=== PATIENT | female | born 1945 | race Caucasian/White ===

== ENCOUNTER → 2017-12-31 07:58 | Outpatient (CLI) | payer MEDICARE, SELFPAY ==
--- NOTE | 2017-12-31 | DI.MG.S_ITS ---
BILATERAL DIGITAL SCREENING MAMMOGRAM 3D/2D WITH CAD: 12/31/2017 CLINICAL: Routine screening. Family history of breast cancer. Comparison is made to exams dated: 11/23/2015 mammogram, 11/05/2015 mammogram, and 02/08/2009 mammogram - [facility]. There are scattered fibroglandular elements in both breasts. Current study was also evaluated with a Computer Aided Detection (CAD) system. No significant masses, calcifications, or other findings are seen in either breast. There has been no significant interval change. IMPRESSION: NEGATIVE There is no mammographic evidence of malignancy. A 1 year screening mammogram is recommended. This exam was interpreted at Station ID: [id number]. NOTE: For mammograms, a report in lay terms will be sent to the patient. Approximately 15% of breast malignancies will not be visualized mammographically. In the management of a palpable breast mass, a negative mammogram must not discourage biopsy of a clinically suspicious lesion. Electronically Signed By: Terrie alegria/caterina:12/31/2017 09:34:11 letter sent: Normal Exam ACR BI-RADS Category 1: Negative 3341F
== END ==
PROVIDERS: PCP Internal Medicine; Visit Provider Internal Medicine
DX: Z12.31 Encounter for screening mammogram for malignant neoplasm of breast (principal); Z80.3 Family history of malignant neoplasm of breast
CPT/HCPCS: 77063; 77067

== ENCOUNTER 2018-10-18 17:07 | Emergency (ER) | payer MEDICARE, SELFPAY ==
[2018-10-18 17:47] VITALS: BP 162/89; PULSE 76; RESP 16; TEMP 36.7; O2SAT 98; BMI 30.4
[2018-10-18 18:24] LABS: Add Manual Diff / Slide Review NO; Basophils Absolute Auto 100 /uL (0-100); Basophils Percent Auto 1.1 % (0-2); Eosinophils Absolute Auto 300 /uL (0-450); Eosinophils Percent Auto 3.6 % (2-4); Hematocrit 40.4 % (36-46); Lymphocytes Absolute Auto 1800 /uL (1100-4500); Lymphocytes Percent Auto 25.6 % (25-40); Mean Corpuscular HGB Conc 34.6 % (30-36); Mean Corpuscular Hemoglobin 33.3 PG (26-34); Mean Corpuscular Volume 96.1 fL (80-100); Monocytes Absolute Auto 600 /uL (0-900); Monocytes Percent Auto 9.3 % (3-14); Neutrophils Absolute Auto 4200 /uL (1500-7000); Neutrophils Percent Auto 60.4 % (50-75); Platelet Count 174 X10^3/uL (150-400); Red Cell Distribution Width 12.8 % (11.6-14.8)
[2018-10-18 18:34] LABS: Alanine Aminotransferase 23 IU/L (9-52); Albumin 4.1 g/dL (3.5-5.0); Albumin Globulin Ratio 1.3 (1.0-2.8); Alkaline Phosphatase 54 U/L (38-126); Aspartate Aminotransferase 29 IU/L (14-36); BUN Creatinine Ratio 23.3 (6-22); Blood Urea Nitrogen 14 mg/dL (7-17); Calcium 10.1 mg/dL (8.4-10.2); Carbon Dioxide 29 mmol/L (22-32); Chloride 96 mmol/L (98-107); Estimated Glomerular Filt Rate > 60.0 mL/min (>60); Globulin 3.1 g/dL (1.7-4.1); Glucose 111 mg/dL (80-110); HEMOLYSIS < 15 (0-50); Potassium 3.4 mmol/L (3.4-5.1); Sodium 133 mmol/L (137-145); Total Protein 7.2 g/dL (6.3-8.2)
[2018-10-18 20:44] VITALS: BP 154/96; PULSE 73; RESP 18; O2SAT 99
--- NOTE | 2018-10-18 21:15 | ED.NEUROSD ---
HPI - Neuro Symptoms/Deficit General Chief Complaint: Neuro Symptoms/Deficit Stated Complaint: lightheaded,never felt like this,SOB Time Seen by Provider: 10/18/18 21:05 Source: patient Mode of arrival: ambulatory Limitations: no limitations History of Present Illness HPI Narrative: This is a 72-year-old female comes emergency department with complaint of not feeling right. Patient states that today she felt like her head did not work. She states she felt clear, she was able to speak, read function she did have any problems but she just felt like there was a ?powder puff sitting on top of her head?. Patient states she thought she might be hungry she tried to finish her food which she did finish ordered she finished her normal daily glass of wine at 4:00 p.m.. Patient states she did have a similar episode about 2 and half years ago that was not exactly the same but somewhat similar. Was about 2 weeks after her had and she was going through the process of setting up his cream a garcía and working through family issues and had a similar situation. Today she felt tingly all over both arms, both legs.. She felt like she might fall down but was able to walk around without issue. She did have any weakness in her extremities, she did have any numbness other than the tingly sensation. She had a little bit of a shortness of breath and chest pain which she has had continuously. Patient denies any nausea, no vomiting, no diarrhea or constipation. She has had a history of PE after having a broken foot did review the cast for 3 words. She takes blood pressure as well as cholesterol medications, potassium replacement and medication for osteopenia as well as thyroid medicine. She denies any tobacco, she does drink alcohol. She states she has been stressed because she is about to move to [place] and is doing this process is a single individual. On Anticoagulants: No Related Data Home Medications Medication Instructions Recorded Confirmed [CALCIUM] PO QDAY #0 05/17/17 ascorbic acid (vitamin C) PO QDAY #0 05/17/17 aspirin 81 mg PO QPM #0 05/17/17 cholecalciferol (vitamin D3) PO QDAY #0 05/17/17 [Vitamin D3] lisinopril-hydrochlorothiazide 1 tab PO QDAY #0 05/17/17 magnesium amino acid chelate PO QDAY #0 05/17/17 multivitamin [Multiple Vitamins] 1 tab PO QDAY #0 05/17/17 simvastatin 40 mg PO HS #0 05/17/17 vitamin B complex [B 1 tab PO QDAY #0 05/17/17 Complex-Vitamin B12] Previous Rx's Medication Instructions Recorded apixaban [Eliquis] 5 mg PO BID #30 05/17/17 Allergies Allergy/AdvReac Type Severity Reaction Status Date / Time No Known Allergies Allergy Uncoded 10/18/18 17:52 Review of Systems Review of Systems ROS Unobtainable: All systems reviewed & are unremarkable except as noted in HPI and below PFSH Social History Smoking Status: Never smoker Social History Smoking Status: Never smoker Exam Narrative Exam Narrative: GEN: well nourished, well appearing female, alert and oriented x 3, patient appears to be in no acute distress. HEENT: Atraumatic, pupils are equal round reactive to light, extraocular movements are intact, nares are clear, Throat is clear without any exudates, erythema, tonsillar enlargement or uvular deviation, no facial droop. HEART: Regular rate and rhythm without murmur, clicks, rubs. No carotid bruits, pulses are equal in upper and lower extremities LUNGS:Lungs clear to auscultation, no wheezes, rales, crackles, chest moves symmetrically ABD:bowel sounds normal, soft, non-tender, no guarding, rebound, rigidity, no masses noted, no hepatosplenomegaly MSCL: Non-tender, no muscle atrophy, muscles strength 5/5 upper and lower extremities, full range of motion NEURO:CN 2-12 intact, sensation normal, reflexes 2/4 upper and lower extremities. finger nose finger test normal, heel garcía test ashwini SKIN: dry, warm, no rash, no petechiae.l Initial Vital Signs Initial Vital Signs: Vital Signs Temperature 98.0 F 10/18/18 17:47 Pulse Rate 76 10/18/18 17:47 Respiratory Rate 16 10/18/18 17:47 Blood Pressure 162/89 H 10/18/18 17:47 Pulse Oximetry 98 10/18/18 17:47 Scores NIH Stroke Scale Level of Conciousness: Alert, keenly responsive Ask month/age: Answers both questions correctly. Open/close eyes, close hand: Performs both tasks correctly Best gaze horizontal: Normal Visual wallace: No visual loss Facial palsy: Normal symetrical movement Left arm drift: No drift for full 10 sec Right arm drift: No drift for full 10 sec Left leg drift: No drift for full 10 sec Right leg drift: No drift for full 10 sec Limb ataxia: Absent Sensory on face/arms/legs: Normal, no sensory loss Best language: No aphasia, normal Dysarthria: Normal Extinction or inattention: No abnormality Total NIH Stroke scale score: 0 Course Orders Ordered: ED Orders 10/18/18 21:36 CT head/brain wo con Stat Vital Signs Vital signs: Vital Signs - 8 hr 10/18/18 22:34 Pulse Rate 73 Respiratory Rate 18 Blood Pressure [Left Arm] 134/82 Pulse Oximetry 97 MDM - Neuro Symptoms/Deficit Lab Data Attestation: I reviewed the patient's lab results. Result diagrams: 10/18/18 18:14 10/18/18 18:14 Labs: Lab Results 10/18/18 10/18/18 10/18/18 Range/Units 17:55 18:14 18:14 WBC 7.0 (4.5-11.0) X10^3/uL RBC 4.20 (4.0-5.2) X10^6/uL Hgb 14.0 (12.0-16.0) g/dL Hct 40.4 (36-46) % MCV 96.1 (80-100) fL MCH 33.3 (26-34) PG MCHC 34.6 (30-36) % RDW 12.8 (11.6-14.8) % Plt Count 174 (150-400) X10^3/uL Neut % (Auto) 60.4 (50-75) % Lymph % (Auto) 25.6 (25-40) % [place] % (Auto) 9.3 (3-14) % Eos % (Auto) 3.6 (2-4) % Baso % (Auto) 1.1 (0-2) % Neut # (Auto) 4200 (6956-0288) /uL Lymph # (Auto) 1800 (0384-8196) /uL [place] # (Auto) 600 (0-900) /uL Eos # (Auto) 300 (0-450) /uL Baso # (Auto) 100 (0-100) /uL Sodium 133 L (137-145) mmol/L Potassium 3.4 (3.4-5.1) mmol/L Chloride 96 L (98-107) mmol/L Carbon Dioxide 29 (22-32) mmol/L BUN 14 (7-17) mg/dL Creatinine 0.60 (0.52-1.04) mg/dL Estimated GFR > 60.0 (>60) mL/min BUN/Creatinine Ratio 23.3 H (6-22) Glucose 111 H (80-110) mg/dL Calcium 10.1 (8.4-10.2) mg/dL Total Bilirubin 1.0 (0.2-1.3) mg/dL AST 29 (14-36) IU/L ALT 23 (9-52) IU/L Alkaline Phosphatase 54 (38-126) U/L Total Creatine Kinase 54 (30-135) U/L CK-MB (CK-2) TNP CK-MB (CK-2) Rel Index TNP Troponin I < 0.012 (0.01-0.034) ng/mL Total Protein 7.2 (6.3-8.2) g/dL Albumin 4.1 (3.5-5.0) g/dL Globulin 3.1 (1.7-4.1) g/dL Albumin/Globulin Ratio 1.3 (1.0-2.8) Urine Dip Bedside Urine Glucose Negative Bedside Urine Bilirubin - Negative Bedside Urine Ketone - Negative Urine Specific [place] 1.010 Bedside Urine Occult Blood - Negative Bedside Urine pH 7.0 Bedside Urine Protein - Negative Bedside Urine Urobilinogen - Negative Bedside Urine Nitrite - Negative Bedside Urine Leukocytes - Negative Esterase Imaging Data CT scan - head: Radiologist's impression: Extensive atrophy like change in moderate nonspecific white matter hypodensity. Probable arachnoid cyst in the right middle cranial fossa. Probable non calcified meningioma left anterior falx 3 x 1.7 x 1.6 x 0.6. 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 Old left basal ganglia lacunar infarct. No mass, midline shift, hydrocephalus or acute hemorrhage. No acute fracture. ECG Data Attestation: I personally reviewed and interpreted this ECG as follows: Prior ECG tracings: available for review Interpretation: Sinus rhythm with PVC, rate of 69 P are 192 QRS of 106 and QTC of 438. Patient has similar EKG from 05/17/2017. Incomplete bundle branch block. MDM Narrative Medical decision making narrative: Patient is feeling better at this time. We reviewed her CT findings with did show possible old infarcts but no acute. We did discuss that a CT of the head is not going to find any sudden acute infarcts but her discrete sputum of history as well as NIH scale does not preclude me to think she has had a TIA or CVA today. We did discuss possible causes and that I do think she needs follow up with her primary care and to evaluate risk factors because she appears to have old strokes on her head CT. Discharge Plan Departure Patient Disposition: Home Clinical Impression: Light-headed feeling, Pulmonary embolism Discharge Date/Time: 10/18/18 23:11 Activity Restrictions/Additional Instructions: Follow-up with your primary care physician for recheck. Call for an appointment if you did not already have one. Continue home medications as prescribed. Here CT today shows a likely arachnoid cyst some meningioma these are unlikely to be the causes of your symptoms today. Return to the emergency department for fevers greater than 100.4 F, new weakness, numbness, difficulty with speech sudden severe headaches, passing out, persistent vomiting, black or bloody stools or other new or concerning symptoms. Prescriptions: No Action lisinopril-hydrochlorothiazide 20 MG/25 MG tablet 1 tab PO QDAY Qty: 0 RF: 0 aspirin 81 MG tablet,delayed release (DR/EC) 81 mg PO QPM Qty: 0 RF: 0 simvastatin 40 MG tablet 40 mg PO HS Qty: 0 RF: 0 vitamin B complex [B Complex-Vitamin B12] 1 EACH tablet 1 tab PO QDAY Qty: 0 RF: 0 ascorbic acid (vitamin C) 500 mg tablet PO QDAY Qty: 0 RF: 0 magnesium amino acid chelate 100 mg tablet PO QDAY Qty: 0 RF: 0 [CALCIUM] PO QDAY Qty: 0 RF: 0 multivitamin [Multiple Vitamins] 1 EACH tablet 1 tab PO QDAY Qty: 0 RF: 0 cholecalciferol (vitamin D3) [Vitamin D3] 2,000 unit capsule PO QDAY Qty: 0 RF: 0 apixaban [Eliquis] 5 MG tablet 5 mg PO BID Qty: 30 RF: 0 Referrals: Farhana Corona MD [Primary Care Provider] -
--- NOTE | 2018-10-18 21:36 | DI.CT.S_ITS ---
PROCEDURE: CT HEAD/BRAIN WO CON INDICATIONS: felt funny, like a powder puff on head. TECHNIQUE: Noncontrast 4.5 mm thick angled axial sections acquired from the foramen magnum to the vertex, with coronal and sagittal reformats. For radiation dose reduction, the following was used: automated exposure control, adjustment of mA and/or kV according to patient size. COMPARISON: None. FINDINGS: Image quality: Excellent. CSF spaces: Basal cisterns are patent. No extra-axial fluid collections. The ventricles are symmetric in size and shape. Brain: No intracranial bleeds or masses. There is cerebral volume loss for age, with resultant ventricular and sulcal prominence. There are periventricular and deep white matter chronic small vessel ischemic changes. There is intracranial internal carotid artery atherosclerosis. Skull and face: Calvarium and visualized facial bones appear intact, without suspicious lesions. Sinuses: Visualized sinuses and mastoids are clear. IMPRESSION: Normal head CT for age. Note: No significant discrepancy from the preliminary report. Dictated by: Brijesh Sosa M.D. on 10/19/2018 at 8:18 Approved by: Brijesh Sosa M.D. on 10/19/2018 at 8:19
[2018-10-18 21:50] LABS: Creatine Kinase 54 U/L (30-135)
[2018-10-18 21:52] VITALS: BP 166/82; PULSE 72; RESP 18; O2SAT 97
--- NOTE | 2018-10-18 21:53 | PC.NURSE ---
Noted pt had episode of bradycardia noted on pulse ox only. (pt not on cardiac monitoring at this time). Placed on cardiac monitoring. Noted bigeminy alternating w/ pvcs.
[2018-10-18 22:03] LABS: Troponin I < 0.012 ng/mL (0.01-0.034)
[2018-10-18 22:34] VITALS: BP 134/82; PULSE 73; RESP 18; O2SAT 97
== END 2018-10-18 23:11 | disposition home or self-care (01) ==
PROVIDERS: Emergency Medicine; Emergency Provider Emergency Medicine; PCP Internal Medicine
DX: R42 Dizziness and giddiness (principal); I26.99 Other pulmonary embolism without acute cor pulmonale
CPT/HCPCS: 36415; 70450; 80053; 81003; 82550; 84484; 85025; 93005; 93041; 99283; 99285